=== PATIENT | female | born 1995 | race Caucasian/White ===

== ENCOUNTER 2016-12-02 11:54 | Emergency (ER) | payer MEDICAID ==
[2016-12-02 12:30] VITALS: BP 143/78
[2016-12-02] MEDS ORDERED: Lidocaine 1% with EPINEPHrine 1:100,000 20 ML MDV INJECT ONE (15:39)
--- NOTE | 2016-12-02 16:49 | EDM.PDOC ---
[id number] BOIL Time Seen by Provider: 12/02/16 13:30 Source: Reports: Patient History Limitations: Reports: No limitations - History of Present Illness INITIAL COMMENTS - FREE TEXT/NARRATIVE: History of skin abscess on buttock which have required I and D in the past. Timing: Reports: worse Location, Skin: Reports: other (right buttock) Quality: Reports: Same as previous episode, Sharp Severity: moderate Known Identified Source: no Place of Occurrence: home Sick Contact: no Similar Symptoms Previously: yes Recent Medical Care: no Treatments [employer]: Reports: Home treatments - Related Data Allergies Allergy/AdvReac Type Severity Reaction Status Date / Time No Known Allergies Allergy Verified 12/02/16 12:29 Home Meds: Ambulatory Orders Medication Instructions Recorded Confirmed Vit with Ca/FA/Iron 1 tab PO DAILY 12/02/16 12/02/16 [ Plus Iron] Past Medical History - Past Health History Medical/Surgical History: Denies Medical/Surgical History HEENT History: Reports: None Cardiovascular History: Reports: None Respiratory History: Reports: None Gastrointestinal History: Reports: None Genitourinary History: Reports: None Other Genitourinary History: antibiotics two weeks ago [employer] History: Reports: Other OB/BYN History: due July 12 Musculoskeletal History: Reports: None Neurological History: Reports: None Psychiatric History: Reports: None Endocrine/Metabolic History: Reports: Obesity/BMI 30+ Hematologic History: Reports: None Immunologic History: Reports: None Oncologic (Cancer) History: Reports: None - Infectious Disease History Infectious Disease History: Reports: None - Past Surgical History Head Surgeries/Procedures: Reports: None Female Surgical History: Reports: None Neurological Surgical History: Reports: None Dermatological Surgical History: Reports: None Social & Family History - Family History Family Medical History: Noncontributory - Tobacco Use Smoking Status *Q: Never Smoker Years of Tobacco use: 2 Packs/Tins Daily: 0.2 Used Tobacco, but Quit: Yes Month Tobacco Last Used: 12 Second Hand Smoke Exposure: No - Caffeine Use Caffeine Use: Reports: Soda - Recreational Drug Use Recreational Drug Use: No - Sexual History Sexual History: Reports: Sexually active - Living Situation & Occupation Living situation: Reports: , with family ED ROS GENERAL - Review of Systems Review Of Systems: ROS reveals no pertinent complaints other than HPI. ED EXAM, SKIN/RASH Exam: See Below Exam Limited By: No limitations General Appearance: alert, WD/WN, no apparent distress Eye Exam: bilateral eye: normal inspection Ears: normal TMs. No: normal canal (right external auditory canal is mildy to moderately swollen and tender. Central area or right TM is pearly olivares) Nose: normal inspection, normal mucosa, no blood Throat/Mouth: Normal inspection, Normal lips, Normal teeth, Normal oropharynx, Normal voice Head: atraumatic, normocephalic Neck: normal inspection, supple, non-tender, full range of motion Respiratory/Chest: no respiratory distress, lungs clear, normal breath sounds, no accessory muscle use, chest non-tender Cardiovascular: normal peripheral pulses Peripheral Pulses: 2+: carotid (L), carotid (R) GI/Abdominal: normal bowel sounds, soft, non tender, no organomegaly, no distention, no abnormal bruit, no mass Back Exam: normal inspection, full range of motion, NT Extremities: normal inspection, normal range of motion, non-tender, no pedal edema, normal capillary refill Neurological: alert, oriented, CN II-XII intact, normal cognition, normal gait, normal reflexes, no motor/sensory deficits Psychiatric: normal affect, normal mood Skin: Warm, Dry, Other (scattered papular rash, mildly pink on torso including proximal arms and thighs). No: No rash ED SKIN PROCEDURES - I&D Skin prep: chlorhexidine (hibiciens) Local anesthesia: Lidocaine: 1% with epi Local anesthetic volume: 4cc Area incised with: 11 blade Drainage: purulent, moderate amount, small amount Probed to break up loculations: Yes Packed with: other (corner of 4 by 4 gauze) Sterile dressinx4(s) Complications: No Complication Description: no conplications Course - Vital Signs Last Recorded V/S: Last Vital Signs Temp 98 F 12/02/16 12:26 Pulse 108 H 12/02/16 12:26 Resp 16 12/02/16 12:26 BP 143/78 H 12/02/16 12:26 Pulse Ox 100 12/02/16 12:26 - Orders/Labs/Meds Meds: Medications Discontinued Medications Generic Name Dose Route Start Last Admin Trade Name Freq PRN Reason Stop Dose Admin Lidocaine/Epinephrine 20 ml 12/02/16 15:39 12/02/16 15:43 Xylocaine 1% With Epinephrine 1:100,000 INJECT 12/02/16 15:40 20 ml ONETIME ONE Administration Departure - Departure Time of Disposition: 14:45 Disposition: Home, Self-Care 01 Condition: good Clinical Impression: Strep pharyngitis, Otitis externa Instructions: Cellulitis, Adult Referrals: PCP,None [Primary Care Provider] - Forms: ED Department Discharge Additional Instructions: Keflex take as directed
== END 2016-12-02 16:50 | disposition home or self-care (01) ==
LOC: DL.ED 11:54
DX: L02.31 Cutaneous abscess of buttock (principal); H60.91 Unspecified otitis externa, right ear; J02.0 Streptococcal pharyngitis; R21 Rash and other nonspecific skin eruption; E66.9 Obesity, unspecified; Z79.899 Other long term (current) drug therapy
CPT/HCPCS: 10061; 99283